=== PATIENT | female | born 1990 ===

== ENCOUNTER 2021-08-10 05:31 | Emergency (ER) | payer SELFPAY ==
--- NOTE | 2021-08-10 05:46 | PC.NURSE ---
pt left. pt was not triaged
== END 2021-08-10 05:46 | disposition left against medical advice (07) ==
LOC: ANHED 06:20
DX: Z53.21 Procedure and treatment not carried out due to patient leaving prior to being seen by health care provider (principal)
CPT/HCPCS: 99199